=== PATIENT | female | born 1985 | race African-American/Black ===

== ENCOUNTER 2016-10-21 12:20 | Emergency (ER) | payer SELFPAY ==
[~2016-10-21] VITALS: Ht 162.6 cm; Wt 111.1 kg
[2016-10-21 14:03] VITALS: BP 121/63
[2016-10-21] MEDS ORDERED: METR500T4 PO (14:58)
--- NOTE | 2016-10-21 14:58 | PHYS DOC ---
Past Medical History Past Medical History: Other Additional Past Medical Histor: [facility] Past Surgical History: Other Additional Past Surgical Histo: [facility]- left abdomen and right leg Alcohol Use: None Drug Use: None Adult General Chief Complaint Chief Complaint: VAGINAL PROBLEM HPI HPI Patient is a 31 year old female who complains of irritation, itching, and redness of the external genital area, for about 2 days, she does not believe it ceased infection. She has essentially no vaginal discharge. He got a new left toilet paper at work and she is wondering if it could be that. She has not been on antibiotics lately. She has not used any of the personal cleansing clots with soap on them. She is in good general health with no chronic medical problems. Review of Systems Review of Systems Constitutional: Denies fever or chills [] GI: Denies abdominal pain, nausea, vomiting, bloody stools or diarrhea [] : Denies dysuria or hematuria [] Allergies Allergies Allergies Coded Allergies Type Severity Reaction Last Updated Verified Penicillins Allergy Severe swelling 04/22/14 No Physical Exam Physical Exam Constitutional: Well developed, well nourished, no acute distress, non-toxic appearance. [] Pelvic/external genitalia exam: External genitalia has a mild amount of erythema mostly anterior. Vaginal vault normal in appearance. There is a small amount of clear watery discharge that has no odor or color. It does not appear consistent with candidiasis. Skin: Warm, dry, no erythema, no rash. [] Extremities: No tenderness, no cyanosis, no clubbing, ROM intact, no edema. [] Neurologic: Alert and oriented X 3, normal motor function, normal sensory function, no focal deficits noted. [] Current Patient Data Vital Signs Vital Signs Date Time Temp Pulse Resp B/P Pulse Ox O2 Delivery O2 Flow Rate FiO2 10/21/16 14:03 98.1 75 18 100 Room Air 98.1 Lab Values Laboratory Tests Test 10/21/16 13:56 POC Urine HCG, Qualitative Hcg negative (Negative) Microbiology 10/21/16 Wet Prep - Final, Complete EKG EKG [] Radiology/Procedures Radiology/Procedures [] Course & Med Decision Making Course & Med Decision Making Pertinent Labs and Imaging studies reviewed. (See chart for details) 31-year-old female with symptoms consistent with bacterial vaginosis and her wet prep is also consistent with this. Discussed the diagnosis and treatment plan with the patient who is agreeable. [] Dragon Disclaimer Dragon Disclaimer This electronic medical record was generated, in whole or in part, using a voice recognition dictation system. Departure Departure Impression: Primary Impression: Bacterial vaginosis Disposition: 01 HOME, SELF-CARE Condition: STABLE Referrals: NO PCP (PCP) Patient Instructions: Bacterial Vaginosis, [id number] Scripts Metronidazole 500 Mg Tablet1 Tab PO BID #14 TAB For bacterial vaginosis Prov:JUDI MURO MD 10/21/16 JUDI MURO MD Oct 21, 2016 14:58
== END 2016-10-21 15:04 | disposition home or self-care (01) ==
LOC: ER 12:20
DX: N76.0 Acute vaginitis (principal); B96.89 Other specified bacterial agents as the cause of diseases classified elsewhere; Z88.0 Allergy status to penicillin
CPT/HCPCS: 81025; 99283; Q0111

== ENCOUNTER 2017-04-22 06:36 | Emergency (ER) | payer SELFPAY ==
[~2017-04-22] VITALS: Ht 162.6 cm; Wt 117.9 kg
[~2017-04-22 06:36] MED LIST: METR500T8 PO
[2017-04-22 06:50] VITALS: BP 149/72
[2017-04-22] MEDS ORDERED: FLUC150T PO (07:13)
--- NOTE | 2017-04-22 07:13 | PHYS DOC ---
Past Medical History Past Medical History: Other Additional Past Medical Histor: [facility] Past Surgical History: Other Additional Past Surgical Histo: [facility]- left abdomen and right leg Alcohol Use: None Drug Use: Marijuana Adult General Chief Complaint Chief Complaint: VAGINAL PROBLEM HPI HPI Patient is a 32 year old female presenting to the emergency department for evaluation of vaginal itching and vaginal discharge has been going on for at least 1 week. Full internally but she denies any fevers chills nausea vomiting abdominal pain dysuria hematuria. She says her last period was 2-3 weeks ago. She is taking Monistat with minimal relief. She is in no obvious distress with normal vital signs. Review of Systems Review of Systems Constitutional: Denies fever or chills [] GI: Denies abdominal pain, nausea, vomiting, bloody stools or diarrhea [] : Denies dysuria or hematuria [] Musculoskeletal: Denies back pain or joint pain [] Allergies Allergies Allergies Coded Allergies Type Severity Reaction Last Updated Verified Penicillins Allergy Severe swelling 04/22/14 No Physical Exam Physical Exam Constitutional: Well developed, well nourished, no acute distress, non-toxic appearance. [] Cardiovascular:Heart rate regular rhythm, no murmur [] Lungs & Thorax: Bilateral breath sounds clear to auscultation [] Abdomen: Bowel sounds normal, soft, no tenderness, no masses, no pulsatile masses. [] [employer]: Labia and vagina are red and irritated and painful to palpation. There is thick white vaginal discharge. Her cervix is somewhat inflamed however there does not appear to be any purulence. She does not have cervical motion or adnexal tenderness. Current Patient Data Vital Signs Vital Signs Date Time Temp Pulse Resp B/P (MAP) Pulse Ox O2 Delivery O2 Flow Rate FiO2 04/22/17 06:50 97.7 97 18 98 Room Air 97.7 Lab Values Laboratory Tests Test 04/22/17 05:53 POC Urine HCG, Qualitative Hcg negative (Negative) Microbiology 04/22/17 Wet Prep - Final, Complete EKG EKG [] Radiology/Procedures Radiology/Procedures [] Course & Med Decision Making Course & Med Decision Making Exam is consistent with follow vaginal candidiasis. I do not suspect PID. Patient appears well and nontoxic so she will be discharged with 2 doses of Diflucan told to follow with a mirror painter and come back to the ED with any new or worsening symptoms. Patient aware and agreeable with plan. Dragon Disclaimer Dragon Disclaimer This electronic medical record was generated, in whole or in part, using a voice recognition dictation system. Departure Departure Impression: Primary Impression: Vulvovaginal candidiasis Additional Impression: Bacterial vaginosis Disposition: 01 HOME, SELF-CARE Condition: GOOD Referrals: CHELA ROQUE Jr, MD Patient Instructions: Bacterial Vaginosis, Candidal Vulvovaginitis, Easy-to- Read Scripts Metronidazole (FLAGYL) 500 Mg Tablet 1 TAB PO BID, #14 TAB Prov: DEBBY ABBASI DO 04/22/17 Fluconazole (DIFLUCAN) 150 Mg Tablet 1 TAB PO ONCE, #2 TAB 1 Refill TAKE 1 TAB TODAY, IF STILL HAVING SYMPTOMS IN 7 DAYS, TAKE THE 2ND TAB. Prov: DEBBY ABBASI DO 04/22/17 Problem Qualifiers DEBBY ABBASI DO Apr 22, 2017 07:13
[2017-04-22] MEDS ORDERED: METR500T PO (07:22)
[2017-04-22] MEDS ORDERED: LIDOCAINE 2% JELLY 6ML IN APPLICATOR. TP ONE (07:30)
[2017-04-22] MEDS ORDERED: GLYCERIN ADULT 1 SUPP.RECT. PR ONE (07:30)
== END 2017-04-22 07:25 | disposition home or self-care (01) ==
LOC: ER 06:36
DX: B37.3 Candidiasis of vulva and vagina (principal); N76.0 Acute vaginitis; Z88.0 Allergy status to penicillin
CPT/HCPCS: 81025; 87491; 87591; 99284; Q0111

== ENCOUNTER 2017-05-08 09:41 | Emergency (ER) | payer OTHER ==
[~2017-05-08] VITALS: Ht 162.6 cm; Wt 117.9 kg
[~2017-05-08 09:41] MED LIST changes: +FLUC150T PO; +METR500T PO
--- NOTE | 2017-05-08 11:22 | RAD ---
Examination: CT head and cervical spine without contrast p history: History of fall the elevator dropped 2 levels, patient fell, neck pain. Comparison: None available PQRS Compliance Statement: One or more of the following individualized dose reduction techniques were utilized for this examination: 1. Automated exposure control 2. Adjustment of the mA and/or kV according to patient size 3. Use of iterative reconstruction technique CT head without contrast History: . Comparison: None. Procedure: Axial images are obtained of the head from the skull base through the vertex without IV contrast. Findings: The ventricles and sulci are normal for the patient's age. No mass-effect, intracranial mass, midline shift, hemorrhage or obvious acute infarction is identified. Basilar cisterns are patent. Bone windows demonstrate no significant calvarial abnormality. The visualized paranasal sinuses appear clear. Impression: 1. No acute intracranial process. CT cervical spine without contrast Technique: Noncontrast helical CT of the cervical spine was performed. Sagittal, and coronal reconstructions were obtained. Findings: Alignment of the cervical spine appears anatomic. There is no evidence of acute fracture or acute malalignment. No prevertebral soft tissue swelling is identified. Visualized soft tissues of the neck demonstrate no significant abnormalities. Impression: 1. No acute fracture cervical spine. Correlate clinically.
[2017-05-08] MEDS ORDERED: HYDROcodone/APAP 5/325MG 1 TAB TABLET PO ONE (11:30)
--- NOTE | 2017-05-08 11:48 | RAD ---
Examination: 3 views of the left knee History: History of fall, pain Comparison: None available Findings: The alignment of the joint grossly appears unremarkable. There is no acute fracture or dislocation identified. Intramedullary joshua identified in the distal femur with distal transfixing screws. Impression: No acute osseous findings.
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
[2017-05-08 12:00] VITALS: BP 124/77
[2017-05-08] MEDS ORDERED: CYCL5TAB PO (12:20)
[2017-05-08] MEDS ORDERED: HYDR-971 PO (12:20)
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
== END 2017-05-08 12:15 | disposition home or self-care (01) ==
LOC: ER 09:41
DX: S16.1XXA Strain of muscle, fascia and tendon at neck level, initial encounter (principal); S80.02XA Contusion of left knee, initial encounter; S09.90XA Unspecified injury of head, initial encounter; M54.5 Low back pain; M54.6 Pain in thoracic spine; E66.9 Obesity, unspecified; Z68.41 Body mass index [BMI] 40.0-44.9, adult; W01.198A Fall on same level from slipping, tripping and stumbling with subsequent striking against other object, initial encounter; Y93.89 Activity, other specified; Y92.89 Other specified places as the place of occurrence of the external cause; Y99.8 Other external cause status
CPT/HCPCS: 70450; 72072; 72100; 72125; 73562; 81025; 99284-25

== ENCOUNTER 2018-11-04 22:53 | Emergency (ER) | payer SELFPAY ==
[~2018-11-04] VITALS: Ht 172.7 cm; Wt 108.9 kg
[~2018-11-04 22:53] MED LIST changes: +CYCL5TAB PO; +HYDR-3164 PO; +METR-34 PO; -METR500T8 PO; +ONDA4TAB10 SL; +TRAM50TA PO
[2018-11-04] MEDS ORDERED: diphenhydrAMINE 50 MG/ML VIAL IVP ONE (23:30)
[2018-11-04] MEDS ORDERED: FAMOTIDINE 20 MG/2 ML VIAL IVP ONE (23:30)
[2018-11-04] MEDS ORDERED: methylPREDNISolone SOD SUCC PF 125 MG/2 ML VIAL. IV ONE (23:30)
[2018-11-04] MEDS ORDERED: IV NORMAL SALINE 1000ML BAG 1,000 ML IV ONE (23:30)
--- NOTE | 2018-11-05 00:03 | PHYS DOC ---
Past Medical History Past Medical History: Other Additional Past Medical Histor: [facility] (BAY CROUCH APRN) Past Surgical History: Other Additional Past Surgical Histo: [facility]- left abdomen and right leg (BAY CROUCH APRN) Alcohol Use: None Drug Use: Marijuana (BAY CROUCH APRN) Adult General Chief Complaint Chief Complaint: ALLERGIC REACTION HPI HPI 33-year-old female presents to ER via POV with complaints of allergic reaction. Patient had been eating at [employer] and started having itching, throat swelling, and felt short of air. Patient's states she took a Benadryl with onset of symptoms however symptoms persisted and gradually worsened. (BAY CROUCH APRN) Review of Systems Review of Systems Constitutional: Denies lethargy Eyes: Denies change in visual acuity, redness, or eye pain [] HENT: Reports swollen throat- denies inability to swallow secretions Respiratory: Denies cough. Reports feeling Cardiovascular: Reports chest tightness GI: Denies nausea, vomiting Musculoskeletal: Denies back pain or joint pain [] Integument: Denies rash or hives- reports itching sensation on arms/chest/neck Neurologic: Denies headache, focal weakness or sensory changes [] All other systems were reviewed and found to be within normal limits, except as documented in this note. (BAY CROUCH APRN) Current Medications Current Medications Current Medications Medications (Trade) Dose Ordered Sig/Nicole Start Time Stop Time Status Last Admin Dose Admin Diphenhydramine HCl (Benadryl) 12.5 mg 1X ONCE 11/04/18 23:30 11/04/18 23:31 DC 11/04/18 23:22 12.5 MG Famotidine (Pepcid Vial) 40 mg 1X ONCE 11/04/18 23:30 11/04/18 23:31 DC 11/04/18 23:23 40 MG Methylprednisolone Sodium Succinate (SOLU-Medrol 125MG VIAL) 125 mg 1X ONCE 11/04/18 23:30 11/04/18 23:31 DC 11/04/18 23:22 125 MG Sodium Chloride 1,000 ml @ 1,000 mls/hr 1X ONCE 11/04/18 23:30 11/05/18 00:29 DC 11/04/18 23:22 1,000 MLS/HR (VERNON PIMENTEL DO) Allergies Allergies Allergies Coded Allergies Type Severity Reaction Last Updated Verified Penicillins Allergy Severe swelling 04/22/14 No (VERNON PIMENTEL DO) Physical Exam Physical Exam Constitutional: Well developed, well nourished, moderate distress- anxious w/rapid breathing, non-toxic appearance. [] HENT: Normocephalic, atraumatic, bilateral ears normal, mucous membranes pink/moist- pharyngeal/uvula swelling/erythema- no exudate; nose normal. [] Eyes: Pupils equal, conjunctiva normal, no discharge. [] Neck: Normal range of motion, no tenderness/nuchal rigidity, supple, no stridor. Trachea midline Cardiovascular: Tachycardic heart rate regular rhythm, no murmur [] Lungs & Thorax: Bilateral breath sounds clear to auscultation- diminished in bases. Pt hyperventilating initially and so redirection provided on breathing and husb. at bedside providing emotional support also- after redirection on breathing she was able to slow her breathing w/reports that improved her SOA. Abdomen: Bowel sounds normal, soft, no tenderness Skin: Warm, dry, no erythema, no rash. [] Back: No tenderness, no CVA tenderness. [] Extremities: No tenderness, no cyanosis, no clubbing, ROM intact, no edema. [] Neurologic: Alert and oriented X 3, normal motor function, normal sensory function, no focal deficits noted. [] Psychologic: Affect normal, judgement normal, mood anxious/restless initially- cooperative during exam and anxiety improved with emotional support from staff/husb. (BAY CROUCH APRN) EKG EKG [] (BAY CROUCH APRN) Radiology/Procedures Radiology/Procedures [] (BAY CROUCH APRN) Course & Med Decision Making Course & Med Decision Making 0: On reevaluation following IV medications patient reports her symptoms have improved. Patient has 100% oxygenation on room air. Heart rate 96. RR 18 equal/nonlabored. No anxiety/restlessness. Patient states itching sensation has significantly improved and she is denying any chest tightness or shortness of air. Air movement increased in all lung crandall on re-exam. Pharyngeal/uvula swelling and erythema improved- airway patent w/uvula midline. Clear unmuffled speech. Pt having no difficulty swallowing. With improved symptoms will continue monitoring patient for a while longer in the ER and if improved condition continues without rebound sxs will d/c home. 0030: Pt was evaluated in the ER for an allergic reaction which started while at a restaurant- uncertain as to cause as pt reported no previous food like allergies. Patient at this time appears to be sleeping and is in no visible distress. Respirations are equal and nonlabored. Heart rate 86 room air oxygenation 100%. Patient has no audible wheezing or stridor. Patient wakes easily with reports her symptoms have improved. The patient and her are comfortable with home discharge at this time. Discharge instructions were discussed along with education on the allergic reaction and monitoring for rebound symptoms. Patient's states they have Benadryl at home. Discussed the patient received dose of Solu-Medrol and Pepcid while in the ER. Will provide prescription for prednisone. Education provided on signs and symptoms to return to ER for. Patient's verbalized understanding. Pt to f/u with her PCP if sxs persist or with concerns. (BAY CROUCH APRN) Dragon Disclaimer Dragon Disclaimer This electronic medical record was generated, in whole or in part, using a voice recognition dictation system. (BAY CROUCH APRN) Departure Departure Impression: Primary Impression: Allergic reaction Disposition: HOME, SELF-CARE Condition: STABLE Referrals: NO PCP (PCP) Patient Instructions: Food Allergy Additional Instructions: Drink plenty of fluids. If symptoms reoccur take benedryl as directed on container. You are being provided with prescription for prednisone which is a steroid- you were provided with dose while in the Emergency Department through your IV. If symptoms persist you can start the prescription tomorrow. If symptoms persist follow-up with primary doctor for re-evaluation and further care- or return to ER for re-evaluation. Scripts Prednisone (PREDNISONE) 50 Mg Tablet 1 TAB PO DAILY, #4 TAB 0 Refills Prov: BAY CROUCH APRN 11/05/18 Attending Signature Attending Signature I have reviewed the PA/VICE PRESIDENT OF [employer]AND MANAG[employer]'s note and plan of care. I was available for consultation as needed during the patient's visit in the emergency department. I agree with the clinical impression, plan, and disposition. (PIMENTEL,VERNON [address] APRN Nov 05, 2018 00:03 VERNON PIMENTEL DO January 15, 2019 11:16
[2018-11-05 00:23] VITALS: BP 125/61
[2018-11-05] MEDS ORDERED: PRED50TA PO (00:37)
== END 2018-11-05 00:50 | disposition home or self-care (01) ==
LOC: ER 22:53
DX: T78.40XA Allergy, unspecified, initial encounter (principal); Z88.0 Allergy status to penicillin; X58.XXXA Exposure to other specified factors, initial encounter
CPT/HCPCS: 96374; 96375; 99283; J1200; J2930; J3490; J7030

== ENCOUNTER 2019-04-09 14:02 | Inpatient (IN) | payer SELFPAY ==
[~2019-04-09] VITALS: Ht 165.1 cm; Wt 110.8 kg
[~2019-04-09 14:02] MED LIST changes: +PRED50TA PO
[2019-04-09] MEDS ORDERED: IV NORMAL SALINE 1000ML BAG 1,000 ML IV ONE (14:30)
[2019-04-09 14:45] LABS: BASO # 0.1 x10^3/uL (0.0-0.2); BASO % 1 % (0-3); EOS # 0.2 x10^3/uL (0.0-0.7); EOS % 2 % (0-3); HEMATOCRIT 28.6 % (36.0-47.0); HEMOGLOBIN 8.6 g/dL (12.0-15.5); LYMPH # 2.7 x10^3/uL (1.0-4.8); LYMPH % 31 % (24-48); MEAN CORPUSCULAR HEMOGLOBIN 20 pg (25-35); MEAN CORPUSCULAR HGB CONC 30 g/dL (31-37); MEAN CORPUSCULAR VOLUME 66 fL (79-100); MONO # 0.6 x10^3/uL (0.0-1.1); MONO % 7 % (0-9); NEUT % 59 % (31-73); PLATELET COUNT 388 x10^3/uL (140-400); RED BLOOD COUNT 4.32 x10^6/uL (3.50-5.40); RED CELL DISTRIBUTION WIDTH 19.6 % (11.5-14.5); WHITE BLOOD COUNT 8.5 x10^3/uL (4.0-11.0)
[2019-04-09 14:57] LABS: CREATININE 0.7 mg/dL (0.6-1.0); GFR 115.9; POTASSIUM 4.3 mmol/L (3.5-5.1)
[2019-04-09 15:03] LABS: ALBUMIN 3.2 g/dL (3.4-5.0); ALBUMIN/GLOBULIN RATIO 0.7 (1.0-1.7); MAGNESIUM 1.9 mg/dL (1.8-2.4); TOTAL BILIRUBIN 0.8 mg/dL (0.2-1.0); TOTAL PROTEIN 7.6 g/dL (6.4-8.2)
--- NOTE | 2019-04-09 15:55 | RAD ---
PQRS Compliance Statement: One or more of the following individualized dose reduction techniques were utilized for this examination: 1. Automated exposure control 2. Adjustment of the mA and/or kV according to patient size 3. Use of iterative reconstruction technique CT head and cervical spine without contrast 04/09/2019 3:32 PM INDICATION: Seizure-like activity, headache COMPARISON: CT head April 04, 2018, CT head and cervical spine May 08, 2017 TECHNIQUE: Multiple axial CT images of the head were obtained from skull base through the vertex without intravenous contrast. Multiple axial CT images of the cervical spine were obtained without intravenous contrast. Coronal and sagittal reformats are provided. FINDINGS: Head: Ventricles, sulci and basal cisterns are within normal limits. There is no hydrocephalus. Arthur-white matter differentiation is normal. There is no acute intracranial hemorrhage. There is no mass, mass effect or midline shift. Posterior fossa is normal in appearance. Visualized portions of the orbits are normal. Paranasal sinuses are well aerated. Mastoid air cells are well aerated. Scalp and calvaria are normal. Cervical spine: Alignment of the cervical spine is normal. Skull base is intact. Craniocervical junction is normal in appearance. Atlantoaxial articulation is normal. Vertebral body heights are maintained without evidence for acute fracture. Facet joints are within normal limits. No significant osseous neural foraminal stenosis. No significant osseous spinal canal stenosis. Transverse foramen are intact. There is no prevertebral soft tissue swelling. Thyroid gland is normal in appearance. Visualized portions of the lung apices are normal without evidence for suspicious pulmonary nodule or infiltrate. IMPRESSION: 1. No acute intracranial hemorrhage. 2. No acute fracture or malalignment of the cervical spine. Electronically signed by: Carina Chaudhary MD (04/09/2019 3:52 PM) [facility]
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
[2019-04-09 16:38] LABS: BILIRUBIN,URINE NEGATIVE (NEG); CLARITY,URINE CLEAR; COLOR,URINE YELLOW; NITRITE,URINE NEGATIVE (NEG); PROTEIN,URINE NEGATIVE (NEG-TRACE); UROBILINOGEN,URINE 0.2 mg/dL (0.2 mg/dL)
[2019-04-09] MEDS ORDERED: ACETAMINOPHEN 500 MG TABLET PO ONE (16:45)
[2019-04-09 16:52] LABS: SQUAMOUS EPITHELIAL CELL,UR MOD /LPF
[2019-04-09 16:53] LABS: BACTERIA,URINE 0 /HPF (0-FEW); WBC,URINE 0 /HPF (0-4)
[2019-04-09 17:07] LABS: BARBITURATES NEG (NEG); BENZODIAZEPINES NEG (NEG); CANNABINOIDS POS (NEG); COCAINE NEG (NEG); METHADONE NEG (NEG); OPIATES NEG (NEG); PHENCYCLIDINE NEG (NEG)
[2019-04-09 17:12] LABS: AMPHETAMINE/METHAMPHETAMINE NEG (NEG)
[2019-04-09] MEDS ORDERED: ONDANSETRON PF 4 MG/2 ML VIAL. IV PRN (18:00)
[2019-04-09 18:19] LABS: ANISOCYTOSIS SLIGHT; HYPOCHROMIA MARKED; MICROCYTOSIS MARKED; PLT ESTIMATE ADEQUATE (ADEQUATE)
--- NOTE | 2019-04-09 19:30 | NUR ---
Unable to complete admission questions due to patient's mental status. at the bedside and denied any significant medical history or home medications.
[2019-04-09 19:49] VITALS: BP 94/53
[2019-04-09 23:21] VITALS: BP 120/59
--- NOTE | 2019-04-10 00:30 | NUR ---
Report given to MAIKEL Johnson. Patient sleeping, notified of nurse change.
[2019-04-10 03:45] VITALS: BP 129/61
[2019-04-10 05:46] LABS: BASO % 1 % (0-3); EOS # 0.3 x10^3/uL (0.0-0.7); EOS % 5 % (0-3); HEMATOCRIT 27.7 % (36.0-47.0); HEMOGLOBIN 8.4 g/dL (12.0-15.5); LYMPH # 2.4 x10^3/uL (1.0-4.8); LYMPH % 46 % (24-48); MEAN CORPUSCULAR HEMOGLOBIN 20 pg (25-35); MEAN CORPUSCULAR HGB CONC 30 g/dL (31-37); MEAN CORPUSCULAR VOLUME 67 fL (79-100); MONO # 0.5 x10^3/uL (0.0-1.1); MONO % 10 % (0-9); NEUT % 39 % (31-73); PLATELET COUNT 328 x10^3/uL (140-400); RED BLOOD COUNT 4.15 x10^6/uL (3.50-5.40); RED CELL DISTRIBUTION WIDTH 19.6 % (11.5-14.5); WHITE BLOOD COUNT 5.1 x10^3/uL (4.0-11.0)
[2019-04-10 06:02] LABS: ALBUMIN 2.9 g/dL (3.4-5.0); ALBUMIN/GLOBULIN RATIO 0.6 (1.0-1.7); CALCIUM 8.5 mg/dL (8.5-10.1); CREATININE 0.7 mg/dL (0.6-1.0); GFR 115.9; TOTAL BILIRUBIN 0.5 mg/dL (0.2-1.0); TOTAL PROTEIN 7.5 g/dL (6.4-8.2)
[2019-04-10] MEDS ORDERED: HYDROcodone/APAP 5/325MG 1 TAB TABLET PO PRN ×2 (06:30)
--- NOTE | 2019-04-10 06:51 | EKG ---
[facility] [address] [place] [address] Test Date: 2019-04-09 Test Time: 14:21:14 Pat Name: TERRELL LYNNE Department: Room: Gender: F Bag Builder: : 1985 Requested By: BAY CROUCH Order Number: [id number] Reading MD: Measurements Intervals [place] Rate: 73 P: 45 TN: 154 QRS: 17 QRSD: 74 T: 41 QT: 368 QTc: 409 Interpretive Statements SINUS RHYTHM NO SPECIFIC ECG ABNORMALITIES RI6.01 No previous ECG available for comparison
[2019-04-10 07:00] VITALS: BP 104/67
[2019-04-10] MEDS ORDERED: levETIRAcetam 500 MG TABLET PO SCH (09:00)
--- NOTE | 2019-04-10 09:47 | PDOC2 ---
NEUROLOGY CONSULT Date of Admission Date of Admission DATE: 04/10/19 TIME: 09:37 Reason for Consult Reason for Consult: Seizure Referring Physician Referring Physician: Dr. Watkins Source Source: Caregiver (), Chart review, Patient History of Present Illness History of Present Illness The patient is a 34-year-old right-handed female who had about a 5 or 10-second seizure witnessed by her . He describes convulsive activity and postictal confusion without tongue biting or incontinence. I saw her when she was here a year ago with a seizures, 3 episodes of convulsions with loss of consciousness, tongue biting, possible incontinence, and post-ictal confusion. At that time I felt that the problem was her restarting marijuana and indeed she continues to smoke marijuana, but at a lower rate. She also thinks that pain from her uterine fibroids and leg pain contributes to having a seizure. She is feeling better now. Last year we did check an MRI of the brain which was negative. We could not do an EEG because of her hair weave, she was supposed to return as an outpatient, but never did so. There is no history of previous stroke, or head injury. 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, smokes at least one marijuana cigarettes a day, rare alcohol, no tobacco Current Medications Current Medications Current Medications Sodium Chloride 1,000 ml @ 1,000 mls/hr 1X ONCE IV Last administered on 04/09/19at 14:30; Start 04/09/19 at 14:30; Stop 04/09/19 at 15:29; Status DC Acetaminophen (Tylenol) 1,000 mg 1X ONCE PO Last administered on 04/09/19at 17:02; Start 04/09/19 at 16:45; Stop 04/09/19 at 16:46; Status DC Ondansetron HCl (Zofran) 4 mg PRN Q8HRS PRN IV NAUSEA/VOMITING; Start 04/09/19 at 18:00; Stop 04/10/19 at 17:59 Acetaminophen/ Hydrocodone Bitart (Lortab 5/325) 1 tab PRN Q4HRS PRN PO MODERATE PAIN 4-6 Last administered on 04/10/19at 06:34; Start 04/10/19 at 06:30 Acetaminophen/ Hydrocodone Bitart (Lortab 5/325) 1 tab PRN Q4HRS PRN PO PAIN; Start 04/10/19 at 06:30; Status UNV Levetiracetam (Keppra) 500 mg BID PO ; Start 04/10/19 at 09:00 Active Scripts Active No Active Prescriptions or Reported Medications Allergies Allergies: Coded Allergies: Penicillins (Unverified Allergy, Severe, swelling, 04/22/14) amoxicillin (Verified Allergy, Intermediate, 04/09/19) angioedema ROS Review of System Negative for fever, chills, weight loss, shortness of breath, chest pain, indigestion, hematochezia, melena, and dysuria. Full 14-point review of systems is negative. Physical Exam Physical Examination General: Well-developed, well-nourished black female in no acute distress HEENT: Normocephalic and�atraumatic.�Temporal arteries�pulsatile and nontender. Neck: Supple without bruit, no meningismus� Musculoskeletal: Stability:�see neurologic. Gait exam:�see neurologic. Tone:�see neurolo gic.�Strength:�see neurologic.� Neurological: Mental Status:�intact, orientation, memory, attention span/concentration, language, fund of knowledge normal. Cranial Nerves:�Pupils equal and reactive to light, extraocular movements are�intact, visual crandall are full to confrontation. Facial sensation is normal. There is no facial asymmetry. Vestibulo-ocular reflex is intact. Palate elevates and tongue protrudes in midline. All other cranial related problems are negative except as mentioned before.�Reflexes:�2+ and symmetric with flexor plantar responses. Motor:�5/5 strength with normal tone and bulk. Coordination:�Finger-nose finger and [id number] testing are normal. Rapid alternating movements and fine finger movements are intact. Gait:�Normal, including tandem. Sensory:�Normal pinprick, vibration, light touch, proprioception.� Vitals VITALS Vital Signs Date Time Temp Pulse Resp B/P (MAP) Pulse Ox O2 Delivery O2 Flow Rate FiO2 04/10/19 07:00 97.8 75 16 104/67 (79) 100 Room Air 97.8 Labs Labs Laboratory Tests Test 04/09/19 14:23 04/09/19 14:35 04/10/19 05:00 Urine Collection Type Unknown Urine Color Yellow Urine Clarity Clear Urine pH 7.0 Urine Specific [place] 1.015 Urine Protein Negative mg/dL (NEG-TRACE) Urine Glucose (UA) Negative mg/dL (NEG) Urine Ketones (Stick) Negative mg/dL (NEG) Urine Blood Negative (NEG) Urine Nitrite Negative (NEG) Urine Bilirubin Negative (NEG) Urine Urobilinogen Dipstick 0.2 mg/dL (0.2 mg/dL) Urine Leukocyte Esterase Negative (NEG) Urine RBC 3-5 /HPF (0-2) Urine WBC 0 /HPF (0-4) Urine Squamous Epithelial Cells Mod /LPF Urine Bacteria 0 /HPF (0-FEW) Urine Opiates Screen Neg (NEG) Urine Methadone Screen Neg (NEG) Urine Barbiturates Neg (NEG) Urine Phencyclidine Screen Neg (NEG) Urine Amphetamine/Methamphetamine Neg (NEG) Urine Benzodiazepines Screen Neg (NEG) Urine Cocaine Screen Neg (NEG) Urine Cannabinoids Screen Pos (NEG) Urine Ethyl Alcohol Neg (NEG) White Blood Count 8.5 x10^3/uL (4.0-11.0) 5.1 x10^3/uL (4.0-11.0) Red Blood Count 4.32 x10^6/uL (3.50-5.40) 4.15 x10^6/uL (3.50-5.40) Hemoglobin 8.6 g/dL (12.0-15.5) 8.4 g/dL (12.0-15.5) Hematocrit 28.6 % (36.0-47.0) 27.7 % (36.0-47.0) Mean Corpuscular Volume 66 fL (79-100) 67 fL (79-100) Mean Corpuscular Hemoglobin 20 pg (25-35) 20 pg (25-35) Mean Corpuscular Hemoglobin Concent 30 g/dL (31-37) 30 g/dL (31-37) Red Cell Distribution Width 19.6 % (11.5-14.5) 19.6 % (11.5-14.5) Platelet Count 388 x10^3/uL (140-400) 328 x10^3/uL (140-400) Neutrophils (%) (Auto) 59 % (31-73) 39 % (31-73) Lymphocytes (%) (Auto) 31 % (24-48) 46 % (24-48) Monocytes (%) (Auto) 7 % (0-9) 10 % (0-9) Eosinophils (%) (Auto) 2 % (0-3) 5 % (0-3) Basophils (%) (Auto) 1 % (0-3) 1 % (0-3) Neutrophils # (Auto) 5.0 x10^3/uL (1.8-7.7) 2.0 x10^3/uL (1.8-7.7) Lymphocytes # (Auto) 2.7 x10^3/uL (1.0-4.8) 2.4 x10^3/uL (1.0-4.8) Monocytes # (Auto) 0.6 x10^3/uL (0.0-1.1) 0.5 x10^3/uL (0.0-1.1) Eosinophils # (Auto) 0.2 x10^3/uL (0.0-0.7) 0.3 x10^3/uL (0.0-0.7) Basophils # (Auto) 0.1 x10^3/uL (0.0-0.2) 0.0 x10^3/uL (0.0-0.2) Platelet Estimate Adequate (ADEQUATE) Hypochromasia Marked Anisocytosis Slight Microcytosis Marked Maternal Serum HCG Beta Subunit 1 mIU/mL (0-5) Sodium Level 141 mmol/L (136-145) 141 mmol/L (136-145) Potassium Level 4.3 mmol/L (3.5-5.1) 4.0 mmol/L (3.5-5.1) Chloride Level 107 mmol/L (98-107) 106 mmol/L (98-107) Carbon Dioxide Level 24 mmol/L (21-32) 24 mmol/L (21-32) Anion Gap 10 (6-14) 11 (6-14) Blood Urea Nitrogen 12 mg/dL (7-20) 8 mg/dL (7-20) Creatinine 0.7 mg/dL (0.6-1.0) 0.7 mg/dL (0.6-1.0) Estimated GFR (Cockcroft-Gault) 115.9 115.9 BUN/Creatinine Ratio 17 (6-20) 11 (6-20) Glucose Level 112 mg/dL (70-99) 105 mg/dL (70-99) Calcium Level 9.0 mg/dL (8.5-10.1) 8.5 mg/dL (8.5-10.1) Magnesium Level 1.9 mg/dL (1.8-2.4) Total Bilirubin 0.8 mg/dL (0.2-1.0) 0.5 mg/dL (0.2-1.0) Aspartate Amino Transf (AST/SGOT) 28 U/L (15-37) 11 U/L (15-37) Alanine Aminotransferase (ALT/SGPT) 17 U/L (14-59) 15 U/L (14-59) Alkaline Phosphatase 56 U/L (46-116) 53 U/L (46-116) Troponin I Quantitative < 0.017 ng/mL (0.000-0.055) Total Protein 7.6 g/dL (6.4-8.2) 7.5 g/dL (6.4-8.2) Albumin 3.2 g/dL (3.4-5.0) 2.9 g/dL (3.4-5.0) Albumin/Globulin Ratio 0.7 (1.0-1.7) 0.6 (1.0-1.7) Ethyl Alcohol Level < 10 mg/dL (0-10) Laboratory Tests Test 04/09/19 14:23 04/09/19 14:35 04/10/19 05:00 Urine Collection Type Unknown Urine Color Yellow Urine Clarity Clear Urine pH 7.0 Urine Specific [place] 1.015 Urine Protein Negative mg/dL (NEG-TRACE) Urine Glucose (UA) Negative mg/dL (NEG) Urine Ketones (Stick) Negative mg/dL (NEG) Urine Blood Negative (NEG) Urine Nitrite Negative (NEG) Urine Bilirubin Negative (NEG) Urine Urobilinogen Dipstick 0.2 mg/dL (0.2 mg/dL) Urine Leukocyte Esterase Negative (NEG) Urine RBC 3-5 /HPF (0-2) Urine WBC 0 /HPF (0-4) Urine Squamous Epithelial Cells Mod /LPF Urine Bacteria 0 /HPF (0-FEW) Urine Opiates Screen Neg (NEG) Urine Methadone Screen Neg (NEG) Urine Barbiturates Neg (NEG) Urine Phencyclidine Screen Neg (NEG) Urine Amphetamine/Methamphetamine Neg (NEG) Urine Benzodiazepines Screen Neg (NEG) Urine Cocaine Screen Neg (NEG) Urine Cannabinoids Screen Pos (NEG) Urine Ethyl Alcohol Neg (NEG) White Blood Count 8.5 x10^3/uL (4.0-11.0) 5.1 x10^3/uL (4.0-11.0) Red Blood Count 4.32 x10^6/uL (3.50-5.40) 4.15 x10^6/uL (3.50-5.40) Hemoglobin 8.6 g/dL (12.0-15.5) 8.4 g/dL (12.0-15.5) Hematocrit 28.6 % (36.0-47.0) 27.7 % (36.0-47.0) Mean Corpuscular Volume 66 fL (79-100) 67 fL (79-100) Mean Corpuscular Hemoglobin 20 pg (25-35) 20 pg (25-35) Mean Corpuscular Hemoglobin Concent 30 g/dL (31-37) 30 g/dL (31-37) Red Cell Distribution Width 19.6 % (11.5-14.5) 19.6 % (11.5-14.5) Platelet Count 388 x10^3/uL (140-400) 328 x10^3/uL (140-400) Neutrophils (%) (Auto) 59 % (31-73) 39 % (31-73) Lymphocytes (%) (Auto) 31 % (24-48) 46 % (24-48) Monocytes (%) (Auto) 7 % (0-9) 10 % (0-9) Eosinophils (%) (Auto) 2 % (0-3) 5 % (0-3) Basophils (%) (Auto) 1 % (0-3) 1 % (0-3) Neutrophils # (Auto) 5.0 x10^3/uL (1.8-7.7) 2.0 x10^3/uL (1.8-7.7) Lymphocytes # (Auto) 2.7 x10^3/uL (1.0-4.8) 2.4 x10^3/uL (1.0-4.8) Monocytes # (Auto) 0.6 x10^3/uL (0.0-1.1) 0.5 x10^3/uL (0.0-1.1) Eosinophils # (Auto) 0.2 x10^3/uL (0.0-0.7) 0.3 x10^3/uL (0.0-0.7) Basophils # (Auto) 0.1 x10^3/uL (0.0-0.2) 0.0 x10^3/uL (0.0-0.2) Platelet Estimate Adequate (ADEQUATE) Hypochromasia Marked Anisocytosis Slight Microcytosis Marked Maternal Serum HCG Beta Subunit 1 mIU/mL (0-5) Sodium Level 141 mmol/L (136-145) 141 mmol/L (136-145) Potassium Level 4.3 mmol/L (3.5-5.1) 4.0 mmol/L (3.5-5.1) Chloride Level 107 mmol/L (98-107) 106 mmol/L (98-107) Carbon Dioxide Level 24 mmol/L (21-32) 24 mmol/L (21-32) Anion Gap 10 (6-14) 11 (6-14) Blood Urea Nitrogen 12 mg/dL (7-20) 8 mg/dL (7-20) Creatinine 0.7 mg/dL (0.6-1.0) 0.7 mg/dL (0.6-1.0) Estimated GFR (Cockcroft-Gault) 115.9 115.9 BUN/Creatinine Ratio 17 (6-20) 11 (6-20) Glucose Level 112 mg/dL (70-99) 105 mg/dL (70-99) Calcium Level 9.0 mg/dL (8.5-10.1) 8.5 mg/dL (8.5-10.1) Magnesium Level 1.9 mg/dL (1.8-2.4) Total Bilirubin 0.8 mg/dL (0.2-1.0) 0.5 mg/dL (0.2-1.0) Aspartate Amino Transf (AST/SGOT) 28 U/L (15-37) 11 U/L (15-37) Alanine Aminotransferase (ALT/SGPT) 17 U/L (14-59) 15 U/L (14-59) Alkaline Phosphatase 56 U/L (46-116) 53 U/L (46-116) Troponin I Quantitative < 0.017 ng/mL (0.000-0.055) Total Protein 7.6 g/dL (6.4-8.2) 7.5 g/dL (6.4-8.2) Albumin 3.2 g/dL (3.4-5.0) 2.9 g/dL (3.4-5.0) Albumin/Globulin Ratio 0.7 (1.0-1.7) 0.6 (1.0-1.7) Ethyl Alcohol Level < 10 mg/dL (0-10) Assessment/Plan Assessment/Plan Impression: Second admission in a little over a year for seizures, may have been precipitated by marijuana. Recommendations: No need to repeat MRI of the brain Electroencephalogram I discussed risk, benefits, alternatives, side effects, and will start her on levetiracetam Abstinence from marijuana. No driving for 6 months, seizure-free. I discussed seizure precautions Aim for discharge later today Thank you for letting me help the patient's care. EBONY VARGAS MD Apr 10, 2019 09:47
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
[2019-04-10 11:30] VITALS: BP 117/50
--- NOTE | 2019-04-10 14:43 | EEG ---
DATE OF SERVICE: 04/10/2019 EEG NUMBER [id number] performed on 04/10/2019. OBJECTIVE: The patient is a 34-year-old female with new seizures this year, but has had seizures in the past. DESCRIPTION: This is a digital study. Electrodes are placed according to the international 10-20 system. Bipolar and referential montages are available. Activation procedures typically include hyperventilation and intermittent photic stimulation. INTERPRETATION: The waking background consists of 9-10 Hz, 50-100 microvolt activity, symmetrically distributed over parietooccipital regions and reactive to eye opening. Hyperventilation and intermittent photic stimulation are noncontributory. Stage 2 sleep is achieved with normal electroencephalogram patterns. IMPRESSION: This electroencephalogram with the patient awake and asleep is within normal limits. All computer identified abnormalities are either normal or artifactual. There is no focal, paroxysmal, or epileptiform activity. Thank you for letting us help with the patient's care. EBONY VARGAS MD DR: АЛЕКСАНДР/autumn JOB#: [id number] / [id number]
--- NOTE | 2019-04-10 15:06 | PDOC3 ---
Discharge Summary Date of Admission: Apr 09, 2019 Date of Discharge: Apr 10, 2019 Follow-Up: 3-5 days Admitting Diagnosis comment: discharge dx Assessment/Plan IMPRESSION 1. Acute seizure 2. morbid obesity 3. THC ABUSE 4. noncompliance with abstinance of thc PLAN Abstinence from marijuana. No driving for 6 months, seizure-free.no swimming or climbing ladders, no power tool use see neurology soon, pcp soon discussed seizure precautions levictram 500mg po bid 68 min pt exam, chart review, > 50% of time spent with exam, chart review, pt care coordination Identification/Chief Complaint Chief Complaint 34-year-old female presented to ER via POV with her mother for concerns patient had seizure-like activity ROM 12:30. Per reports patient's spouse reported the patient had headache around 8 11:30 and then around 12:30 he noticed patient started to shake and her eyes rolled back. Arrival patient was in dazed state confused on events. She is aware she is in a hospital neurology ok with d/c today, recent mri head ok Past Medical History Past Medical History Past Medical History Past Medical History: No Pertinent History, Other Additional Past Medical Histor: [facility] Past Surgical History: Other Additional Past Surgical Histo: W- left abdomen and right leg Alcohol Use: None Drug Use: Marijuana family hx obesity Cardiovascular: No pertinent hx GI: GERD Psych: Other Rheumatologic: Other Infectious disease: No pertinent hx Renal/: Other (pelvic pain coming uterine fibroids, follows with a physician at ) Past Surgical History Past Surgical History: Hysterectomy (?) Family History Family History: Hypertension Social History Smoke: No ALCOHOL: rare Drugs: Marijuana Current Problem List Problem List Problems Medical Problems: (1) Confusion Status: Acute (2) Seizure-like activity Status: Acute Current Medications Current Medications Current Medications Sodium Chloride 1,000 ml @ 1,000 mls/hr 1X ONCE IV Last administered on 04/09/19at 14:30; Start 04/09/19 at 14:30; Stop 04/09/19 at 15:29; Status DC Acetaminophen (Tylenol) 1,000 mg 1X ONCE PO Last administered on 04/09/19at 17 :02; Start 04/09/19 at 16:45; Stop 04/09/19 at 16:46; Status DC Ondansetron HCl (Zofran) 4 mg PRN Q8HRS PRN IV NAUSEA/VOMITING; Start 04/09/19 at 18:00; Stop 04/10/19 at 17:59 Acetaminophen/ Hydrocodone Bitart (Lortab 5/325) 1 tab PRN Q4HRS PRN PO MODERATE PAIN 4-6 Last administered on 04/10/19at 06:34; Start 04/10/19 at 06:30 Acetaminophen/ Hydrocodone Bitart (Lortab 5/325) 1 tab PRN Q4HRS PRN PO PAIN; Start 04/10/19 at 06:30; Status UNV Levetiracetam (Keppra) 500 mg BID PO ; Start 04/10/19 at 09:00 Active Scripts Active No Active Prescriptions or Reported Medications Allergies Allergies: Coded Allergies: Penicillins (Unverified Allergy, Severe, swelling, 04/22/14) amoxicillin (Verified Allergy, Intermediate, 04/09/19) angioedema ROS Review of System Review of Systems Review of Systems Constitutional: Denies fever or chills. [] Respiratory: Denies cough or shortness of breath. [] Cardiovascular: Denies chest pain or edema. [] GI: Denies abdominal pain, nausea, vomiting, bloody stools or diarrhea. [] : Denies dysuria. [] Musculoskeletal: Denies back pain or joint pain. [] Integument: Denies rash. [] Neurologic: Denies headache, focal weakness or sensory changes. [] Endocrine: Denies polyuria or polydipsia. [] 14 pt ros otherwise neg PSYCHOLOGICAL ROS: YES: Memory difficulties Eyes: No Blurry vision, No Decreased vision, No Double vision, No Dry eyes, No Excessive tearing, No Eye Pain, No Itchy Eyes, No Loss of vision, No Photophobia, No Scotomata, No Uses contacts, No Uses glasses, No Other Hematological and Lymphatic: No: Bleeding Problems, Blood Clots, Blood Transfusions, Brusing, Night Sweats, Pallor, Swollen Lymph Nodes, Other Respiratory: No: Cough, Hemoptysis, Orthopnea, Pleuritic Pain, Shortness of breath, SOB with excertion, Sputum Changes, Stridor, Tachypnea, Wheezing, Other Cardiovascular: No Chest Pain, No Palpitations, No Orthopnea, No Paroxysmal Noc. Dyspnea, No Edema, No Lt Headedness, No Other Musculoskeletal: Yes Joint Stiffness Neurological: Yes Seizures Skin: Yes Dry Skin Physical Exam Physical Exam Physical Exam Physical Exam Constitutional: Well developed, well nourished, no acute distress, non-toxic appearance. Dazed appearance- became tearful during exam but wasn't aware she was crying HENT: Normocephalic, atraumatic, bilateral external ears normal, oropharynx moist, no oral exudates, nose normal. [] Eyes: 3mm PERRLA, EOMI, no nystagmus, conjunctiva normal, no discharge. [] Neck: Normal range of motion, tender mid cspine- no palp. deformity, supple, no stridor. [] Cardiovascular: Heart rate regular rhythm, no murmur [] Lungs & Thorax: Bilateral breath sounds clear to auscultation- resp. equal/nonlabored Abdomen: Bowel sounds normal, soft, no tenderness, no masses, no pulsatile masses. [] Skin: Warm, dry, no erythema, no rash. [] Back: No tenderness, no CVA tenderness. [] Extremities: No tenderness, no cyanosis, no clubbing, ROM intact, no edema. [] Neurologic: Alert and oriented X 2, normal motor function, normal sensory function, no focal deficits noted. [] Psychologic: Affect normal, judgement normal, mood normal. [] General: Oriented X3, Cooperative, No acute distress HEENT: Atraumatic, PERRLA, EOMI, Mucous membr. moist/pink Lungs: Clear to auscultation Heart: RRR, no thrills, no gallops Breasts: Not examined Abdomen: Normal bowel sounds, Soft Rectal Exam: not examined PELVIC: Examination not indicated Extremities: No clubbing, No cyanosis, No edema Skin: No rashes Neuro: Normal speech, Strength at 5/5 X4 ext, Sensation intact, Cranial nerves 3-12 NL Psych/Mental Status: Mental status NL, Mood NL RACHNA FORREST MD Apr 10, 2019 10:09 FINAL DIAGNOSIS Problems Medical Problems: (1) Confusion Status: Acute (2) Seizure-like activity Status: Acute Brief Hospital Course Ms. Sullivan is a 34 old [sex] who presented with [seizure ] CONDITION AT DISCHARGE: Improved Discharge Medications Current Medications Sodium Chloride 1,000 ml @ 1,000 mls/hr 1X ONCE IV Last administered on 04/09/19at 14:30; Start 04/09/19 at 14:30; Stop 04/09/19 at 15:29; Status DC Acetaminophen (Tylenol) 1,000 mg 1X ONCE PO Last administered on 04/09/19at 17:02; Start 04/09/19 at 16:45; Stop 04/09/19 at 16:46; Status DC Ondansetron HCl (Zofran) 4 mg PRN Q8HRS PRN IV NAUSEA/VOMITING; Start 04/09/19 at 18:00; Stop 04/10/19 at 17:59 Acetaminophen/ Hydrocodone Bitart (Lortab 5/325) 1 tab PRN Q4HRS PRN PO MODERATE PAIN 4-6 Last administered on 04/10/19at 06:34; Start 04/10/19 at 06:30 Acetaminophen/ Hydrocodone Bitart (Lortab 5/325) 1 tab PRN Q4HRS PRN PO PAIN; Start 04/10/19 at 06:30; Status UNV Levetiracetam (Keppra) 500 mg BID PO Last administered on 04/10/19at 12:01; Start 04/10/19 at 09:00 Active Scripts Active No Active Prescriptions or Reported Medications Vital Signs Vital Signs Date Time Temp Pulse Resp B/P (MAP) Pulse Ox O2 Delivery O2 Flow Rate FiO2 04/10/19 11:30 97.3 64 18 117/50 (72) 100 Room Air 97.3 Labs Laboratory Tests Test 04/09/19 14:23 04/09/19 14:35 04/10/19 05:00 Urine Collection Type Unknown Urine Color Yellow Urine Clarity Clear Urine pH 7.0 Urine Specific [place] 1.015 Urine Protein Negative mg/dL (NEG-TRACE) Urine Glucose (UA) Negative mg/dL (NEG) Urine Ketones (Stick) Negative mg/dL (NEG) Urine Blood Negative (NEG) Urine Nitrite Negative (NEG) Urine Bilirubin Negative (NEG) Urine Urobilinogen Dipstick 0.2 mg/dL (0.2 mg/dL) Urine Leukocyte Esterase Negative (NEG) Urine RBC 3-5 /HPF (0-2) Urine WBC 0 /HPF (0-4) Urine Squamous Epithelial Cells Mod /LPF Urine Bacteria 0 /HPF (0-FEW) Urine Opiates Screen Neg (NEG) Urine Methadone Screen Neg (NEG) Urine Barbiturates Neg (NEG) Urine Phencyclidine Screen Neg (NEG) Urine Amphetamine/Methamphetamine Neg (NEG) Urine Benzodiazepines Screen Neg (NEG) Urine Cocaine Screen Neg (NEG) Urine Cannabinoids Screen Pos (NEG) Urine Ethyl Alcohol Neg (NEG) White Blood Count 8.5 x10^3/uL (4.0-11.0) 5.1 x10^3/uL (4.0-11.0) Red Blood Count 4.32 x10^6/uL (3.50-5.40) 4.15 x10^6/uL (3.50-5.40) Hemoglobin 8.6 g/dL (12.0-15.5) 8.4 g/dL (12.0-15.5) Hematocrit 28.6 % (36.0-47.0) 27.7 % (36.0-47.0) Mean Corpuscular Volume 66 fL (79-100) 67 fL (79-100) Mean Corpuscular Hemoglobin 20 pg (25-35) 20 pg (25-35) Mean Corpuscular Hemoglobin Concent 30 g/dL (31-37) 30 g/dL (31-37) Red Cell Distribution Width 19.6 % (11.5-14.5) 19.6 % (11.5-14.5) Platelet Count 388 x10^3/uL (140-400) 328 x10^3/uL (140-400) Neutrophils (%) (Auto) 59 % (31-73) 39 % (31-73) Lymphocytes (%) (Auto) 31 % (24-48) 46 % (24-48) Monocytes (%) (Auto) 7 % (0-9) 10 % (0-9) Eosinophils (%) (Auto) 2 % (0-3) 5 % (0-3) Basophils (%) (Auto) 1 % (0-3) 1 % (0-3) Neutrophils # (Auto) 5.0 x10^3/uL (1.8-7.7) 2.0 x10^3/uL (1.8-7.7) Lymphocytes # (Auto) 2.7 x10^3/uL (1.0-4.8) 2.4 x10^3/uL (1.0-4.8) Monocytes # (Auto) 0.6 x10^3/uL (0.0-1.1) 0.5 x10^3/uL (0.0-1.1) Eosinophils # (Auto) 0.2 x10^3/uL (0.0-0.7) 0.3 x10^3/uL (0.0-0.7) Basophils # (Auto) 0.1 x10^3/uL (0.0-0.2) 0.0 x10^3/uL (0.0-0.2) Platelet Estimate Adequate (ADEQUATE) Hypochromasia Marked Anisocytosis Slight Microcytosis Marked Maternal Serum HCG Beta Subunit 1 mIU/mL (0-5) Sodium Level 141 mmol/L (136-145) 141 mmol/L (136-145) Potassium Level 4.3 mmol/L (3.5-5.1) 4.0 mmol/L (3.5-5.1) Chloride Level 107 mmol/L (98-107) 106 mmol/L (98-107) Carbon Dioxide Level 24 mmol/L (21-32) 24 mmol/L (21-32) Anion Gap 10 (6-14) 11 (6-14) Blood Urea Nitrogen 12 mg/dL (7-20) 8 mg/dL (7-20) Creatinine 0.7 mg/dL (0.6-1.0) 0.7 mg/dL (0.6-1.0) Estimated GFR (Cockcroft-Gault) 115.9 115.9 BUN/Creatinine Ratio 17 (6-20) 11 (6-20) Glucose Level 112 mg/dL (70-99) 105 mg/dL (70-99) Calcium Level 9.0 mg/dL (8.5-10.1) 8.5 mg/dL (8.5-10.1) Magnesium Level 1.9 mg/dL (1.8-2.4) Total Bilirubin 0.8 mg/dL (0.2-1.0) 0.5 mg/dL (0.2-1.0) Aspartate Amino Transf (AST/SGOT) 28 U/L (15-37) 11 U/L (15-37) Alanine Aminotransferase (ALT/SGPT) 17 U/L (14-59) 15 U/L (14-59) Alkaline Phosphatase 56 U/L (46-116) 53 U/L (46-116) Troponin I Quantitative < 0.017 ng/mL (0.000-0.055) Total Protein 7.6 g/dL (6.4-8.2) 7.5 g/dL (6.4-8.2) Albumin 3.2 g/dL (3.4-5.0) 2.9 g/dL (3.4-5.0) Albumin/Globulin Ratio 0.7 (1.0-1.7) 0.6 (1.0-1.7) Ethyl Alcohol Level < 10 mg/dL (0-10) Laboratory Tests Test 04/10/19 05:00 White Blood Count 5.1 x10^3/uL (4.0-11.0) Red Blood Count 4.15 x10^6/uL (3.50-5.40) Hemoglobin 8.4 g/dL (12.0-15.5) Hematocrit 27.7 % (36.0-47.0) Mean Corpuscular Volume 67 fL (79-100) Mean Corpuscular Hemoglobin 20 pg (25-35) Mean Corpuscular Hemoglobin Concent 30 g/dL (31-37) Red Cell Distribution Width 19.6 % (11.5-14.5) Platelet Count 328 x10^3/uL (140-400) Neutrophils (%) (Auto) 39 % (31-73) Lymphocytes (%) (Auto) 46 % (24-48) Monocytes (%) (Auto) 10 % (0-9) Eosinophils (%) (Auto) 5 % (0-3) Basophils (%) (Auto) 1 % (0-3) Neutrophils # (Auto) 2.0 x10^3/uL (1.8-7.7) Lymphocytes # (Auto) 2.4 x10^3/uL (1.0-4.8) Monocytes # (Auto) 0.5 x10^3/uL (0.0-1.1) Eosinophils # (Auto) 0.3 x10^3/uL (0.0-0.7) Basophils # (Auto) 0.0 x10^3/uL (0.0-0.2) Sodium Level 141 mmol/L (136-145) Potassium Level 4.0 mmol/L (3.5-5.1) Chloride Level 106 mmol/L (98-107) Carbon Dioxide Level 24 mmol/L (21-32) Anion Gap 11 (6-14) Blood Urea Nitrogen 8 mg/dL (7-20) Creatinine 0.7 mg/dL (0.6-1.0) Estimated GFR (Cockcroft-Gault) 115.9 BUN/Creatinine Ratio 11 (6-20) Glucose Level 105 mg/dL (70-99) Calcium Level 8.5 mg/dL (8.5-10.1) Total Bilirubin 0.5 mg/dL (0.2-1.0) Aspartate Amino Transf (AST/SGOT) 11 U/L (15-37) Alanine Aminotransferase (ALT/SGPT) 15 U/L (14-59) Alkaline Phosphatase 53 U/L (46-116) Total Protein 7.5 g/dL (6.4-8.2) Albumin 2.9 g/dL (3.4-5.0) Albumin/Globulin Ratio 0.6 (1.0-1.7) Allergies Allergies Coded Allergies Type Severity Reaction Last Updated Verified Penicillins Allergy Severe swelling 04/22/14 No amoxicillin Allergy Intermediate 04/09/19 Yes Disposition/Orders: D/C to Home Patient Instructions d/c planning 68 min RACHNA FORREST MD Apr 10, 2019 15:06
[2019-04-10] MEDS ORDERED: LEVE500T56 PO (15:08)
--- NOTE | 2019-04-10 15:10 | DISCH ---
DISCHARGE INSTRUCTIONS Condition on Discharge Condition on Discharge: Guarded Activity After Discharge Activity Instructions for Disc: Other, see below Lifting Instructions after Dis: No heavy lifting Exercise Instruction after Dis: Walk 10 min, 3 x per day Driving Instructions after Dis: Do not drive, Other, see below Weight Bearing Status after Di: As tolerated Diet after Discharge Diet after Discharge: Regular Checks after Discharge Checks after discharge: Check blood press - daily Contacting the DR. after DC Call your doctor for: If your condition worsens RACHNA FORREST MD Apr 10, 2019 15:10
[2019-04-10 15:15] VITALS: BP 107/62
--- NOTE | 2019-04-10 15:51 | NUR ---
Pt and spouse verbalized understanding of discharge instructions and medications.
--- NOTE | 2019-04-10 16:05 | NUR ---
Pt discharged to home with all belongings, instructions and prescription.
== END 2019-04-10 16:05 | disposition home or self-care (01) | DRG 101 ==
LOC: ER 14:02 → 6 SOUTH 16:10
PROVIDERS: ADMIT Internal Medicine; ATTEND Internal Medicine
DX: R56.9 Unspecified convulsions (principal); Z68.41 Body mass index [BMI] 40.0-44.9, adult; K21.9 Gastro-esophageal reflux disease without esophagitis; E66.01 Morbid (severe) obesity due to excess calories; F12.10 Cannabis abuse, uncomplicated; F17.210 Nicotine dependence, cigarettes, uncomplicated; Z82.49 Family history of ischemic heart disease and other diseases of the circulatory system; Z88.0 Allergy status to penicillin; Z79.899 Other long term (current) drug therapy; Z91.19 Patient's noncompliance with other medical treatment and regimen
CPT/HCPCS: 36415; 70450; 72125; 80053; 80307; 81001; 83735; 84484; 84702; 85025; 93005; 95816; 96360; G0480; J7030; 99285-25

== ENCOUNTER 2019-06-05 08:55 | Emergency (ER) | payer SELFPAY ==
[~2019-06-05] VITALS: Ht 162.6 cm; Wt 108.9 kg
[~2019-06-05 08:55] MED LIST changes: +LEVE500T56 PO
[2019-06-05] MEDS ORDERED: IV NORMAL SALINE 1000ML BAG 1,000 ML IV ONE (09:45)
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
[2019-06-05] MEDS ORDERED: IOHEXOL 300 MG/ML 100ML VIAL. IV ONE (10:00)
[2019-06-05] MEDS ORDERED: CONTRAST GIVEN. MC PRN (10:00)
[2019-06-05 10:07] LABS: BILIRUBIN,URINE NEGATIVE (NEG); CLARITY,URINE CLEAR; COLOR,URINE YELLOW; NITRITE,URINE NEGATIVE (NEG); PH,URINE 5.5; PROTEIN,URINE NEGATIVE (NEG-TRACE); UROBILINOGEN,URINE 0.2 mg/dL (0.2 mg/dL)
[2019-06-05] MEDS ORDERED: MORPHINE SULFATE 4 MG/ML VIAL. IV ONE (10:15)
[2019-06-05] MEDS ORDERED: MORPHINE SULFATE 10 MG/ML VIAL. IV ONE (10:15)
[2019-06-05 10:20] LABS: CALCIUM 8.7 mg/dL (8.5-10.1); CREATININE 0.8 mg/dL (0.6-1.0); GFR 99.4; POTASSIUM 3.7 mmol/L (3.5-5.1)
[2019-06-05 10:28] LABS: ALBUMIN/GLOBULIN RATIO 0.6 (1.0-1.7); TOTAL BILIRUBIN 0.3 mg/dL (0.2-1.0); TOTAL PROTEIN 7.7 g/dL (6.4-8.2)
[2019-06-05 10:36] LABS: BASO # 0.1 x10^3/uL (0.0-0.2); BASO % 1 % (0-3); EOS # 0.2 x10^3/uL (0.0-0.7); EOS % 3 % (0-3); HEMATOCRIT 26.9 % (36.0-47.0); LYMPH # 3.2 x10^3/uL (1.0-4.8); LYMPH % 37 % (24-48); MEAN CORPUSCULAR HEMOGLOBIN 20 pg (25-35); MEAN CORPUSCULAR HGB CONC 30 g/dL (31-37); MEAN CORPUSCULAR VOLUME 66 fL (79-100); MONO # 0.5 x10^3/uL (0.0-1.1); MONO % 6 % (0-9); NEUT # 4.6 x10^3/uL (1.8-7.7); NEUT % 54 % (31-73); PLATELET COUNT 280 x10^3/uL (140-400); RED BLOOD COUNT 4.11 x10^6/uL (3.50-5.40); WHITE BLOOD COUNT 8.7 x10^3/uL (4.0-11.0)
[2019-06-05 10:40] LABS: SQUAMOUS EPITHELIAL CELL,UR MOD /LPF
[2019-06-05 10:42] LABS: BACTERIA,URINE FEW /HPF (0-FEW); RBC,URINE OCC /HPF (0-2); WBC,URINE OCC /HPF (0-4)
[2019-06-05 11:30] VITALS: BP 126/60
--- NOTE | 2019-06-05 11:52 | RAD ---
Study: CT abdomen/pelvis with intravenous contrast Indication: Right lower quadrant abdominal pain. Comparison: Most recently on 03/05/2018 Technique: Helical CT imaging performed of the abdomen and pelvis after the intravenous administration of 75 cc Omnipaque 300 contrast. Sagittal and coronal reformats were obtained. Findings: Again demonstrated is a partially calcified nodule in the lower aspect of the right lower lobe, image 1 series 2, measuring approximately 1.7 cm that is unchanged from the prior. Additional partially calcified nodule at the lower aspect of the left lower lobe, image 4 series 2, unchanged in size from the prior measuring 0.9 cm. No newly seen pulmonary nodule. The visualized heart is unremarkable. Low-attenuation of the liver suggestive of hepatic steatosis. The gallbladder, pancreas and spleen are unchanged with redemonstrated splenic granuloma. The adrenal glands are unremarkable. Unchanged bilateral renal cystic foci, the largest of which is at the inferior pole of the right kidney, image 35 series 2. No hydronephrosis or hydroureter. Mild/moderate distention of the urinary bladder. Newly seen peripherally hyperdense and centrally low attenuation masslike focus within the uterine fundus, image 55 series 2, measuring 3.1 x 2.5 x 3.2 cm. Decrease in size of an area of low attenuation at the lower uterus/cervix region, image 70 series 2 measuring approximately 2.8 cm on this study relative to 3.9 cm previously. Within normal limits appearance of both ovaries. Multiple bowel anastomoses redemonstrated. No bowel obstruction or findings to suggest active inflammation. The appendix is well seen anterior to the right psoas muscle, image 53 series 2, and is unremarkable. No free fluid or air. Surgical changes along the midline without complicating features. Redemonstrated metallic focus adjacent to the anterior abdominal wall, image 30 series 2. Scattered lymph nodes which do not meet pathologic criteria based on size. The major vascular structures of the abdomen/pelvis are unremarkable. Partially visualized surgical changes involving the left femur. Surgical changes involving the left pubic body as well. No acute osseous abnormality. Impression: 1. No acute abnormality seen throughout the abdomen or pelvis to explain the patient's symptoms. The appendix is well-visualized and is unremarkable. Redemonstrated multifocal bowel anastomoses without bowel obstruction, perforation or findings to suggest active inflammation. 2. Newly seen peripherally hyperdense, centrally low-attenuation focus within the uterine fundus measuring approximately 3.1 x 2.5 x 3.2 cm. This likely represents a fibroid given the presence of an additional low-attenuation focus in the lower uterus/cervix region which has slightly decreased in size from the comparison. If there is ongoing concern, pelvic sonography could be considered for further evaluation. 3. Hepatic steatosis. 4. Sequela of a remote granulomatous process with unchanged partially calcified nodules at both the right and left lower lobes. No follow-up for these nodules is needed. Electronically signed by: JAME NOEL MD (06/05/2019 11:49 AM) [facility]
[2019-06-05 12:13] LABS: PLT ESTIMATE ADEQUATE (ADEQUATE)
[2019-06-05 12:14] LABS: HYPOCHROMIA PRESENT; MICROCYTOSIS PRESENT
== END 2019-06-05 12:25 | disposition home or self-care (01) ==
LOC: ER 08:55
DX: D25.9 Leiomyoma of uterus, unspecified (principal); R19.7 Diarrhea, unspecified; Z88.0 Allergy status to penicillin; Z88.1 Allergy status to other antibiotic agents
CPT/HCPCS: 36415; 74177; 80053; 81001; 81025; 83690; 85025; 96361; 96374; 99285; J2270; J7030; Q9967

== ENCOUNTER 2019-08-07 00:04 | Emergency (ER) | payer OTHER ==
[~2019-08-07] VITALS: Ht 162.6 cm; Wt 108.9 kg
[2019-08-07 00:23] VITALS: BP 134/71
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
[2019-08-07] MEDS ORDERED: HYDROcodone/APAP 5/325MG 1 TAB TABLET PO ONE (00:45)
[2019-08-07] MEDS ORDERED: ORPHENADRINE CITRATE 60 MG/2 ML VIAL. IM ONE (00:45)
[2019-08-07] MEDS ORDERED: NAPR-514 PO (01:03)
[2019-08-07] MEDS ORDERED: CYCL10TA2 PO (01:03)
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
== END 2019-08-07 01:37 | disposition home or self-care (01) ==
LOC: ER 00:04
DX: S39.012A Strain of muscle, fascia and tendon of lower back, initial encounter (principal); M25.531 Pain in right wrist; R07.2 Precordial pain; F12.90 Cannabis use, unspecified, uncomplicated; Z88.1 Allergy status to other antibiotic agents; Z98.890 Other specified postprocedural states; V89.2XXA Person injured in unspecified motor-vehicle accident, traffic, initial encounter; Y93.89 Activity, other specified; Y92.488 Other paved roadways as the place of occurrence of the external cause; Y99.8 Other external cause status
CPT/HCPCS: 29125; 71045; 72100; 73110; 81025; 96372; 99284; J2360

== ENCOUNTER 2019-10-26 19:03 | Emergency (ER) | payer SELFPAY ==
[~2019-10-26] VITALS: Ht 162.6 cm; Wt 109.0 kg
[~2019-10-26 19:03] MED LIST changes: +CYCL10TA2 PO; +NAPR-514 PO
[2019-10-26 19:34] VITALS: BP 134/68
[2019-10-26] MEDS ORDERED: MORPHINE SULFATE 10 MG/ML VIAL. IV ONE (19:45)
[2019-10-26] MEDS ORDERED: ONDANSETRON PF 4 MG/2 ML VIAL. IVP ONE (19:45)
[2019-10-26 19:59] LABS: CLARITY,URINE TURBID; COLOR,URINE RED
[2019-10-26 20:04] LABS: AMORPHOUS SEDIMENT,UR PRESENT /HPF; BACTERIA,URINE MOD /HPF (0-FEW); RBC,URINE TNTC /HPF (0-2); SQUAMOUS EPITHELIAL CELL,UR MOD /LPF; WBC,URINE 20-40 /HPF (0-4)
[2019-10-26 20:08] LABS: U PREG PATIENT NEGATIVE (NEG)
[2019-10-26 20:10] LABS: BASO # 0.1 x10^3/uL (0.0-0.2); BASO % 1 % (0-3); EOS % 0 % (0-3); HEMATOCRIT 28.9 % (36.0-47.0); HEMOGLOBIN 8.6 g/dL (12.0-15.5); LYMPH # 1.6 x10^3/uL (1.0-4.8); LYMPH % 13 % (24-48); MEAN CORPUSCULAR HEMOGLOBIN 19 pg (25-35); MEAN CORPUSCULAR HGB CONC 30 g/dL (31-37); MEAN CORPUSCULAR VOLUME 64 fL (79-100); MONO # 0.6 x10^3/uL (0.0-1.1); MONO % 4 % (0-9); NEUT # 10.6 x10^3/uL (1.8-7.7); NEUT % 82 % (31-73); PLATELET COUNT 368 x10^3/uL (140-400); RED BLOOD COUNT 4.51 x10^6/uL (3.50-5.40); RED CELL DISTRIBUTION WIDTH 20.2 % (11.5-14.5); WHITE BLOOD COUNT 12.9 x10^3/uL (4.0-11.0)
--- NOTE | 2019-10-26 21:02 | RAD ---
EXAM: Pelvic Ultrasound Complete INDICATION: Menstrual cramps and pelvic pain for 6 hours. History of fibroids. ? TECHNIQUE: Real-time ultrasound of the pelvis with permanent freeze-frame documentation. Transabdominal approach was utilized. COMPARISON:?Contrast-enhanced abdomen pelvis CT 06/05/2019 ? FINDINGS: ? UTERUS:?Uterus measures 12.5 x 9.7 x 5.8 cm.? Endometrial thickness 0.8 cm. The uterus is enlarged and shows multiple contour deformities compatible with leiomyomatous uterus. The largest measures 4.0 x 4.6 x 3.7 cm of the right lateral uterine body. ? RIGHT OVARY/ADNEXA: Right ovary measures 2.9 x 2.6 x 1.3 cm.? Unremarkable. Normal ovarian blood flow. LEFT OVARY/ADNEXA:?Left ovary measures 3.5 x 2.4 x 2.4 cm. ?Unremarkable. Normal ovarian blood flow. ? OTHER:?No evidence of significant pelvic free fluid. ? IMPRESSION: ? Myomatous uterus. No evidence of ovarian torsion. Electronically signed by: Manny Griffin MD (10/26/2019 9:00 PM) [facility]
[2019-10-26 21:06] LABS: ANISOCYTOSIS SLIGHT; HYPOCHROMIA MARKED; MICROCYTOSIS MARKED; PLT ESTIMATE ADEQUATE (ADEQUATE); POIKILOCYTOSIS SLIGHT
[2019-10-26 21:07] LABS: OVALOCYTES FEW
[2019-10-26] MEDS ORDERED: DICL50TA2 PO (21:16)
[2019-10-26] MEDS ORDERED: ONDA4TAB12 PO (21:16)
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
== END 2019-10-26 21:28 | disposition home or self-care (01) ==
LOC: ER 19:03
DX: D25.9 Leiomyoma of uterus, unspecified (principal); N93.8 Other specified abnormal uterine and vaginal bleeding; F12.90 Cannabis use, unspecified, uncomplicated; Z98.890 Other specified postprocedural states; Z88.1 Allergy status to other antibiotic agents
CPT/HCPCS: 36415; 76856; 81001; 81025; 85025; 96374; 96375; 99284; J2270; J2405

== ENCOUNTER 2020-05-03 08:15 | Emergency (ER) | payer SELFPAY ==
[~2020-05-03] VITALS: Ht 162.6 cm; Wt 91.0 kg
[~2020-05-03 08:15] MED LIST changes: +DICL50TA2 PO; +ONDA4TAB12 PO
[2020-05-03 08:28] VITALS: BP 125/73
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
[2020-05-03] MEDS ORDERED: METR500T PO (09:26)
[2020-05-07 01:08] LABS: GC PROBE Negative (Negative)
== END 2020-05-03 09:41 | disposition home or self-care (01) ==
LOC: ER 08:15
DX: N76.0 Acute vaginitis (principal); B96.89 Other specified bacterial agents as the cause of diseases classified elsewhere; F12.90 Cannabis use, unspecified, uncomplicated; Z98.890 Other specified postprocedural states; Z88.0 Allergy status to penicillin; Z88.1 Allergy status to other antibiotic agents
CPT/HCPCS: 87491; 87591; 99283; Q0111